=== PATIENT | male | born 1965 | race Caucasian/White ===

== ENCOUNTER 2018-12-28 18:40 | Emergency (ER) | payer OTHER ==
[~2018-12-28] VITALS: Ht 180.3 cm; Wt 99.8 kg
[2018-12-28] MEDS ORDERED: TRAZODONE HCL100 MG PO (18:49)
[2018-12-28] MEDS ORDERED: VITAMIN B122500 MCG PO (18:50)
== END 2018-12-28 19:47 | disposition home or self-care (01) ==
LOC: ED 18:40 → EDBD 18:41 → ED 18:41
DX: R09.89 Other specified symptoms and signs involving the circulatory and respiratory systems (principal); I10 Essential (primary) hypertension; E78.00 Pure hypercholesterolemia, unspecified; F17.200 Nicotine dependence, unspecified, uncomplicated; Z79.899 Other long term (current) drug therapy
CPT/HCPCS: 71046; 99284-25

== ENCOUNTER 2020-03-10 07:15 | Emergency (ER) | payer OTHER ==
[~2020-03-10] VITALS: Ht 180.3 cm; Wt 99.8 kg
[~2020-03-10 07:15] MED LIST: TRAZODONE HCL100 MG PO; VITAMIN B122500 MCG PO
== END 2020-03-10 08:16 | disposition home or self-care (01) ==
LOC: ED 07:15
DX: J39.2 Other diseases of pharynx (principal); I10 Essential (primary) hypertension; E78.00 Pure hypercholesterolemia, unspecified; F17.200 Nicotine dependence, unspecified, uncomplicated; Z79.899 Other long term (current) drug therapy
CPT/HCPCS: 70360; 99283-25

== ENCOUNTER 2022-01-02 23:54 | Emergency (ER) | payer OTHER ==
[~2022-01-02] VITALS: Ht 180.3 cm; Wt 99.8 kg
[2022-01-03] MEDS ORDERED: FOLIC ACID1 MG PO (02:41)
[2022-01-03] MEDS ORDERED: B-1100 MG PO (02:41)
--- NOTE | 2022-01-03 22:45 | EKG ---
[facility] [address] [facility] [place] [address] Signed Sinus tachycardia Left bundle branch block Abnormal ECG No previous ECGs available Confirmed by YULIA POOLE MD ([id number]) on 01/03/2022 10:45:28 PM Electronically Signed By: YULIA POOLE MD 01/03/22 2245 PATIENT NAME: ESPERANZA MELISSA CHILO Electrocardiogram DATE OF : 67 PHYSICIAN: YULIA POOLE MD REPORT #: [id number] REPORT IS CONFIDENTIAL AND NOT TO BE RELEASED WITHOUT AUTHORIZATION
--- NOTE | 2022-01-03 22:46 | EKG ---
[facility] [address] [facility] [place], [place] [address] Signed Sinus tachycardia Left bundle branch block Abnormal ECG When compared with ECG of 02-JAN-2022 23:57, (Unconfirmed) No significant change was found Confirmed by YULIA POOLE MD ([id number] on 01/03/2022 10:45:47 PM Electronically Signed By: YULIA POOLE MD 01/03/22 2246 PATIENT NAME: BELÉNESPERANZA Electrocardiogram DATE OF : 67 PHYSICIAN: YULIA POOLE MD REPORT #: [id number] REPORT IS CONFIDENTIAL AND NOT TO BE RELEASED WITHOUT AUTHORIZATION
== END 2022-01-03 03:50 | disposition home or self-care (01) ==
LOC: ED 23:54
DX: F10.10 Alcohol abuse, uncomplicated (principal); Y90.8 Blood alcohol level of 240 mg/100 ml or more; R53.1 Weakness; I10 Essential (primary) hypertension; E78.00 Pure hypercholesterolemia, unspecified; M10.9 Gout, unspecified; F17.200 Nicotine dependence, unspecified, uncomplicated; Z79.899 Other long term (current) drug therapy
CPT/HCPCS: 36415; 70450; 80053; 81001; 82140; 83690; 83735; 84484; 85025; 85610; 93005; 93010; 96365; 96375; 96376; 99285-25; G0480; J2060; J3411; J7042

== ENCOUNTER 2022-02-15 18:25 | Emergency (ER) | payer OTHER ==
[~2022-02-15] VITALS: Ht 180.3 cm; Wt 99.8 kg
[~2022-02-15 18:25] MED LIST changes: +B-1100 MG PO; +FOLIC ACID1 MG PO
[2022-02-15] MEDS ORDERED: ULTRAM50 MG PO (20:34)
== END 2022-02-15 21:20 | disposition home or self-care (01) ==
LOC: ED 18:25
DX: S39.012A Strain of muscle, fascia and tendon of lower back, initial encounter (principal); I10 Essential (primary) hypertension; E78.00 Pure hypercholesterolemia, unspecified; M10.9 Gout, unspecified; F17.200 Nicotine dependence, unspecified, uncomplicated; Z79.899 Other long term (current) drug therapy; W19.XXXA Unspecified fall, initial encounter
CPT/HCPCS: 72131; 96372; 99284-25; J1885; J3360

== ENCOUNTER 2022-07-28 08:09 | Emergency (ER) | payer OTHER ==
[~2022-07-28] VITALS: Ht 180.3 cm; Wt 84.8 kg
[~2022-07-28 08:09] MED LIST changes: +ULTRAM50 MG PO
[2022-07-28 09:23] VITALS: BP 130/86
== END 2022-07-28 09:23 | disposition home or self-care (01) ==
LOC: ED 08:09
DX: K59.00 Constipation, unspecified (principal); I10 Essential (primary) hypertension; F10.21 Alcohol dependence, in remission; F17.200 Nicotine dependence, unspecified, uncomplicated; Z79.899 Other long term (current) drug therapy
CPT/HCPCS: 99283